=== PATIENT | male | born 1955 | race Caucasian/White ===

== ENCOUNTER 2018-07-03 08:59 | Outpatient (CLI) | payer OTHER ==
[2018-07-03 10:35] LABS: Hemoglobin 17.5 g/dL (14.0-18.0); Mean Corpuscular HGB CONC 32.9 g/dL (32.0-36.0); Mean Corpuscular Hemoglobin 29.4 pg (27.0-31.0); Mean Corpuscular Volume 89.4 fL (78.0-98.0); Mean Platelet Volume 7.2 fL (7.4-10.4); Platelet Count 311 thou/uL (130-400); RBC Distribution Width 12.3 % (11.5-14.5); Red Blood Cell (RBC) Count 5.93 mill/uL (4.70-6.10)
[2018-07-03 10:44] LABS: PTT 31.8 SEC (22.9-36.1); Prothrombin Time 13.1 SEC (12.0-14.7)
[2018-07-03 11:00] LABS: Anion Gap 11 mmol/L (10-20); BUN (Urea Nitrogen) 10 mg/dL (8.4-25.7); Calc. Creatinine Clearance 0 mL/min (70-130); Carbon Dioxide 27 mmol/L (23-31); Chloride 102 mmol/L (98-107); Estimated GFR-MDRD 86; Glucose 98 mg/dL (80-115); Potassium 4.6 mmol/L (3.5-5.1); Sodium 135 mmol/L (136-145)
== END 2018-07-03 09:00 | disposition home or self-care (01) ==
LOC: LABBT 08:59
PROVIDERS: ATTEND Thoracic Surgery (Cardiothoracic Vascular Surgery)
DX: Z01.818 Encounter for other preprocedural examination (principal); I71.4 Abdominal aortic aneurysm, without rupture
CPT/HCPCS: 80048; 85027; 85610; 85730; 86850; 86900; 86901; 93005; 93010

== ENCOUNTER 2018-07-03 09:00 | Inpatient (IN) | payer OTHER ==
[2018-07-04] MEDS ORDERED: CEFAZOLIN/Water 2 GM/20 ML SYRINGE ONE (06:10)
[2018-07-04] MEDS ORDERED: Heparin 10,000 UNITS/1 ML VIAL ONE ×3 (06:29→09:08)
[2018-07-04] MEDS ORDERED: Protamine Sulfate 50 MG/5 ML VIAL ONE (06:29)
[2018-07-04] MEDS ORDERED: Fentanyl 100 MCG/2 ML VIAL ONE (06:32)
[2018-07-04] MEDS ORDERED: Midazolam HCl 2 mg/2 ml Vial ONE (06:32)
[2018-07-04] MEDS ORDERED: Bupivacaine HCl 0.5%/Epinephrine 1:200,000/PF 30 ml Vial ONE (09:16)
[2018-07-04] MEDS ORDERED: Ondansetron HCl/PF 4 MG/2 ML Vial IVP PRN ×2 (09:44→11:52)
--- NOTE | 2018-07-04 10:22 | OP ---
DATE OF PROCEDURE: 07/04/2018 PREOPERATIVE DIAGNOSIS: Abdominal aortic aneurysm. POSTOPERATIVE DIAGNOSIS: Abdominal aortic aneurysm. PROCEDURES: 1. Abdominal aortogram with bilateral runoff. 2. Endovascular repair of abdominal aortic aneurysm with 1) 23 x 16 x 145, left iliac bifurcated Endurant II graft; 2) right iliac extension with a 16 x 24 flared limb; 3) aortic cuff with a 23 x 5 cuff; 4) right femoral artery cutdown and femoral artery repair; 5) left percutaneous access and closure with crossed ProGlides. 6) US guided bilateral arterial access SURGEON: Dr. Jaun Garcia and Dr. Brian Flowers. ESTIMATED BLOOD LOSS: 300. ANESTHESIA: General endotracheal. CONTRAST: 60 mL. FLUORO TIME: 12 minutes 41 seconds. PROCEDURE IN DETAIL: After consent was obtained, the patient was brought to operating room and placed in supine position on the operating table. Appropriate anesthetic monitor was placed and general endotracheal anesthesia induced. Abdomen and legs were prepped and draped in usual sterile fashion. Using ultrasound guidance, the femoral artery was cannulated bilaterally and cross ProGlides placed. The patient was given 7500 units of heparin. ACTs were followed and kept greater than 200 throughout the procedure. The pigtail catheter was then placed through an 11 [place] [employer] sheath into the abdominal aorta. An aortogram was performed eliminating the aorta and iliac vasculature. Appropriate graft was selected. The pigtail catheter was then removed from the left femoral system and moved to the right system and positioned appropriately. The bifurcated graft was positioned and deployed. The gate was cannulated with an angled glide catheter and wire. The extension limb was then measured using an iliac injection. The limb was then brought in the operative field and deployed down the right iliac system. We purposefully landed the graft low due to the long neck on the aneurysm. The Contra catheter was then positioned above the renal arteries and injection performed. We selected a 23 x 5 aortic cuff extension which was then deployed. All deployment catheters were then removed. The left side iliac artery was plugged with a 14-[place] [employer] sheath, the right side was plugged with a 12-[place] sheath. The Reliant balloons were then placed bilaterally and used to tack down the graft for its full length. Aortogram was performed showing no endoleak with good flow down the iliac arteries. The catheters were removed and a Amanda Huff DBA [employer] guidewire left in place bilaterally. On the right, the 12-[place] [employer] sheath was removed. ProGlides failed. The right femoral artery was then cut down on and running 5-0 Prolene repair performed. There was good hemostasis. On the left, the ProGlides were deployed and had nice hemostasis. The right groin was then injected with 0.5% Marcaine with epinephrine and closed in multiple layers. Dermabond was applied to both groin incisions. Needle, sponge, and instrument counts were all reported correct at the end of the procedure. The patient was awakened, extubated, and transferred to the recovery room in stable condition. GREG
[2018-07-04] MEDS ORDERED: (Sildenafil Citrate [Viagra] 100 MG) PO PRN (11:52)
[2018-07-04] MEDS ORDERED: Phenylephrine 10 MG/NS 250 ML 250 ML IVPB PRN (11:52)
[2018-07-04] MEDS ORDERED: Acetaminophen 325 MG TAB PO PRN (11:52)
[2018-07-04] MEDS ORDERED: Fentanyl 100 MCG/2 ML VIAL SLOW IVP PRN ×2 (11:52)
[2018-07-04] MEDS ORDERED: hydrALAZINE 20 MG/ML VIAL SLOW IVP PRN (11:52)
[2018-07-04] MEDS ORDERED: traMADol HCl 50 MG TAB PO PRN (11:52)
[2018-07-04 12:21] VITALS: BP 138/66; BMI 26.2
[2018-07-04] MEDS ORDERED: Vecuronium 10 MG VIAL ONE (13:48)
[2018-07-04] MEDS ORDERED: PHENYLEPHRINE-NS 100 MCG/ML 10 ML SYRINGE ONE (13:48)
[2018-07-04] MEDS ORDERED: Lidocaine 1% PF 5 ML VIAL ONE (13:48)
[2018-07-04] MEDS ORDERED: ePHEDrine/0.9% NaCl/PF SYRINGE 50 mg/10 ml ONE (13:48)
[2018-07-04] MEDS ORDERED: Dexamethasone 20 MG/5 ML VIAL ONE (13:48)
[2018-07-04] MEDS ORDERED: Ketorolac Tromethamine 30 MG/ML VIAL ONE (13:48)
[2018-07-04] MEDS ORDERED: PROPOFOL 200 MG/20 ML VIAL ONE (13:48)
[2018-07-04] MEDS ORDERED: Ondansetron HCl/PF 4 MG/2 ML Vial ONE (13:48)
[2018-07-04] MEDS ORDERED: Heparin 10,000 UNITS/ 10 ML VIAL ONE (13:48)
[2018-07-04] MEDS ORDERED: Glycopyrrolate 0.2 MG/ML 5 ML SYRINGE ONE (13:48)
[2018-07-04] MEDS: Sodium Chloride 0.9% 1,000 ML IV SCH ×2 (13:52→22:17)
[2018-07-04] MEDS: CEFAZOLIN/Water 2 GM/20 ML SYRINGE SLOW IVP SCH ×2 (13:54→22:12)
[2018-07-05 01:02] VITALS: TEMP 98
[2018-07-05 04:31] LABS: Anion Gap 11 mmol/L (10-20); BUN (Urea Nitrogen) 10 mg/dL (8.4-25.7); Calc. Creatinine Clearance 102 mL/min (70-130); Calcium 9.4 mg/dL (7.8-10.44); Carbon Dioxide 25 mmol/L (23-31); Chloride 106 mmol/L (98-107); Estimated GFR-MDRD 89; Glucose 123 mg/dL (80-115); Potassium 3.7 mmol/L (3.5-5.1); Sodium 138 mmol/L (136-145)
[2018-07-05] MEDS: CEFAZOLIN/Water 2 GM/20 ML SYRINGE SLOW IVP SCH (05:56)
[2018-07-05 06:41] LABS: Band 7 % (5-11); Hemoglobin 14.4 g/dL (14.0-18.0); Lymphocytes 7 % (21-51); MDiff Complete? YES; Mean Corpuscular Hemoglobin 28.7 pg (27.0-31.0); Mean Corpuscular Volume 89.7 fL (78.0-98.0); Mean Platelet Volume 7.3 fL (7.4-10.4); Monocytes 3 % (0-10); Neutrophil 83 % (42-75); Platelet Count 248 thou/uL (130-400); RBC Distribution Width 12.2 % (11.5-14.5); Red Blood Cell (RBC) Count 5.02 mill/uL (4.70-6.10); White Blood Cell (WBC) Count 20.5 thou/uL (4.8-10.8)
--- NOTE | 2018-07-05 06:42 | DIS ---
DATE OF ADMISSION: 07/04/2018 DISCHARGE OF DISCHARGE: 07/05/2018 DIAGNOSES: Abdominal aortic aneurysm. PROCEDURES: Endovascular repair of abdominal aortic aneurysm. DESCRIPTION OF HOSPITAL STAY: Mr. Garcia was admitted for an elective abdominal aortic aneurysm repai r. He has done well and is being discharged to home to follow up with me in 2 weeks.
[2018-07-05] MEDS ORDERED: Aspirin 325 mg Enteric Coated Tablet PO SCH (09:00)
[2018-07-05] MEDS ORDERED: Lisinopril 10 MG TAB PO SCH (09:00)
== END 2018-07-05 08:19 | disposition home or self-care (01) | DRG 269 ==
LOC: SURG A 07-04 05:48 → CCU 07-04 11:57
PROVIDERS: ADMIT Thoracic Surgery (Cardiothoracic Vascular Surgery); ATTEND Thoracic Surgery (Cardiothoracic Vascular Surgery)
PROC: 04V03DZ Restriction of Abdominal Aorta with Intraluminal Device, Percutaneous Approach (ICD-10-PCS; principal; 2018-07-04)
DX: I71.4 Abdominal aortic aneurysm, without rupture (principal); I10 Essential (primary) hypertension; F17.210 Nicotine dependence, cigarettes, uncomplicated
CPT/HCPCS: 36415; 76001; 80048; 85025; C1726; C1760; C1762; C1769; C1894; J0670; J1100; J1642; J1644; J1885; J2001; J2250; J2405; J2704; J2720; J3010